=== PATIENT | female | born 1980 | race Two or more races ===

== ENCOUNTER 2022-03-06 16:47 | Emergency (ER) | payer MEDICAID, OTHER ==
[~2022-03-06] VITALS: Ht 157.5 cm; Wt 70.0 kg
[2022-03-06] MEDS ORDERED: NAP500T PO (20:15)
[2022-03-06] MEDS ORDERED: CYCL-837 PO (20:15)
[2022-03-06] MEDS ORDERED: KETOROLAC TROMETH 60MG/2ML VIAL IM ONE (20:15)
[2022-03-06 21:06] VITALS: BP 117/68
== END 2022-03-06 23:46 | disposition home or self-care (01) ==
LOC: ER 16:47
DX: S46.912A Strain of unspecified muscle, fascia and tendon at shoulder and upper arm level, left arm, initial encounter (principal); X50.0XXA Overexertion from strenuous movement or load, initial encounter; Y93.89 Activity, other specified; Y92.89 Other specified places as the place of occurrence of the external cause; Y99.8 Other external cause status
CPT/HCPCS: 73030; 96372; 99283; J1885